=== PATIENT | female | born 1945 | race Caucasian/White ===

== ENCOUNTER → 2019-10-30 11:35 | Outpatient (CLI) | payer MEDICARE, SELFPAY ==
--- NOTE | 2019-10-30 11:37 | DI.US.S_ITS ---
PROCEDURE: US PELVIC COMPLETE INDICATIONS: VAGINAL SPOTTING, CHECK ENDOMETRIAL THICKNESS TECHNIQUE: Real-time scanning was performed of the pelvic organs, with image documentation. Additional endovaginal scanning was necessary due to incomplete visualization of the adnexal and endometrial structures by transabdominal scanning. COMPARISON: [facility], US, US PELVIC COMPLETE, 09/06/2017, 12:55. FINDINGS: Transabdominal scanning: Limited scanning through the kidneys shows no hydronephrosis. No pathologic free abdominal or pelvic fluid. Endovaginal scanning: Uterus: Uterus is normal in size at 6.4 x 2.9 x 4.8 cm. The endometrium measures 4.0 mm in combined thickness. Ill-defined 0.8 x 0.7 cm mildly echogenic focus is seen adjacent to the superior aspect of the endometrial complex. Ovaries: Not identified. No adnexal masses. IMPRESSION: 1. Normal endometrial thickness measuring 4.0 mm and there is an ill defined region of increased echogenicity adjacent to the superior aspect of the endometrial complex. Findings are nonspecific and followup ultrasound in 3 months is recommended to assess for interval changes. Dictated by: Saeed ROJAS Interpreted: Mehul Angel MD on 10/30/2019 at 14:02 Approved by: Mehul Angel M.D. on 10/30/2019 at 16:21
== END ==
PROVIDERS: PCP Nurse Practitioner; Referring Provider Obstetrics & Gynecology; Visit Provider Obstetrics & Gynecology
DX: N95.0 Postmenopausal bleeding (principal)
CPT/HCPCS: 76830; 76856

== ENCOUNTER → 2020-01-20 13:52 | Outpatient (CLI) | payer MEDICARE, SELFPAY ==
[2020-01-21 20:02] LABS: COVID19 Sendout Not Detected (Not Detect)
== END ==
PROVIDERS: PCP Nurse Practitioner; Visit Provider Physician Assistant
DX: Z11.59 Encounter for screening for other viral diseases (principal)
CPT/HCPCS: 87635

== ENCOUNTER 2020-01-23 06:17 | Day surgery (SDC) | payer MEDICARE, SELFPAY ==
[2020-01-17 13:47] VITALS: BMI 28.7
[2020-01-23] VITALS (12 sets, daily range): BP systolic 110–149; BP diastolic 55–84; PULSE 67–76; RESP 12–24; TEMP 36.4–37.3; O2SAT 92–98; BMI 28.6
--- NOTE | 2020-01-23 | PATH_ITS ---
[facility] Accession Number: [id number] . 01 Material submitted: . uterus - UTERUS, BILATERAL FALLOPIAN TUBES AND OVARIES . 01 Clinical history: . *OPB* . 02 Diagnosis: Uterus, Bilateral Fallopian Tubes and Ovaries (Hysterectomy and Bilateral Salpingo-oophorectomy, Weight 52 grams): Cervix with no significant histomorphologic abnormality. Endocervix with Nabothian gland cysts and no significant histomorphologic abnormality. Endometrium with cystic atrophy; negative for glandular hyperplasia, cytologic atypia or malignancy. Myometrium with involvement by adenomyosis. Uterine serosa with no significant histomorphologic abnormality. Ovaries with benign cortical cysts and benign serous cysts (up to 3 mm in greatest dimension). Fallopian tubes x2; negative for atypia or malignancy. [facility] 01/27/2020 1738 Local . 02 Electronically signed: . Laurie Maher MD, Pathologist NPI- [id number] . 01 Gross description: . Received in formalin, labeled with the patient's name, MRN and uterus, bilateral fallopian tubes and ovaries, is a hysterectomy specimen (52 grams, 6.7 cm from cervical os to fundus, 4.5 cm laterally, and 2.7 cm from anterior to posterior) and attached bilateral salpingo-oophorectomy (left fallopian tube 6.0 cm in length by 0.4 cm in diameter, left ovary 1 gram, 2.0 x 1.0 x 0.5 cm, right fallopian tube 6.0 cm in length by 0.3 cm in diameter, right ovary 1 gram, 1.6 x 0.8 x 0.6 cm). The cervix is 3.0 cm in diameter with a 1.0 cm slit-like cervical os. Attached to the posterior aspect of the cervix is a 3.0 x 2.8 cm white-byrne portion of vaginal mucosa. The serosal surface of the uterus is pink-byrne and smooth. The uterus is opened to reveal a 2.1 x 0.7 cm endocervical canal and a 3.0 x 2.2 cm endometrial cavity. The endometrial thickness measures 0.3 cm and the myometrial thickness measures 1.2 cm. No discrete lesions are identified. The external surfaces of the fallopian tubes are purple-pink and smooth. The fallopian tubes are serially sectioned to reveal a byrne-pink cut surface with stellate lumina. The external surfaces of the ovaries are byrne-white and smooth. The ovaries are bisected to reveal a byrne-pink smooth cut surface. Clinical Trial Specialist sections are submitted as follows: . A1: 6 o'clock cervix. A2: 12 o'clock cervix. A3: full-thickness posterior uterine wall. A4: full-thickness anterior uterine wall. A5: full-thickness section of left ovary. A6: veterans employment representative sections of left fallopian tube and entire trisected fimbriated end. A7: entire bisected right ovary. A8: veterans employment representative sections of right fallopian tube and entire trisected fimbriated end. (SD/[id number]) /MRV 01/24/2020 1055 Local . 02 Pathologist provided ICD-10: N81.10, N81.6 . 02 CPT . 376888 Performed at: 01 [facility] [address] [place] [address] [id number] MD Contreras Li MD Phone: [phone] Performed at: 02 [facility] [address] [place] [address] [id number] MD Leigh Ann Almodovar MD Phone: [phone]
[2020-01-23] MEDS: LACTATED RINGERS 1,000 ML 100 ML IV ×3 (07:25→21:23)
--- NOTE | 2020-01-23 07:34 | PM.PREOP ---
Pre-operative Note COVID-19 COVID-19 status: Negative Result date/Date tested (Pos, Neg/Pending): 01/20/20 Interval Note History & Physical reviewed/Exam performed by Physician: Yes Changes to H&P: No H&P completed within 30 days and has changed as indicated here:: 01/15/20
[2020-01-23] MEDS: APREPITANT 40 MG CAPSULE PO (07:45)
[2020-01-23] MEDS: CEFAZOLIN 2 GM/100 ML FROZ.PIGGY IV (07:50)
[2020-01-23] MEDS: BUPIVACAINE 0.25% W/ EPI 30 ML VIAL INJ (08:40)
--- NOTE | 2020-01-23 08:42 | SUR.OPER ---
Lithotomy on padded OR bed. [place] Pad Positioner under torso. Head on pillow, arms padded and tucked at sides. Legs secured in padded yellow fins stirrups.
--- NOTE | 2020-01-23 10:11 | P.OP_ITS ---
Operative Date/Time/Diagnoses Date of procedure: 01/23/20 Time of procedure: 10:12 Pre-op diagnosis: uterine prolapse, cystocele, rectocele Post-op diagnosis: same Procedure & Clinicians Procedure: Procedures Operation Date: 01/23/20 07:45 Actual Procedures Side Surgeon p Laparoscopic Assisted Vag Hysterectomy w/ bilateral salpingo-oophorectomy, Anne White MD s Perineorraphy Anne White MD Indications: Uterine prolapse cystocele rectocele very short posterior vagina Surgeon: Anne White [employer] Financial [employer] Agent: Hui Cote Anesthesia Type: General and Local (incisions, cervix) Operative Notes Findings: 5 week size uterus, prolapsed Attenuated tubes and ovaries Nl liver and gallbladder Nl appendix Shortened vagina posteriorly Closure Type: primary Specimen(s): left tube & ovary, right tube & ovary and uterus Applied: catheter (To continuous drainage) Estimated blood loss (mL): 100 Blood products transfused: none Procedure in detail: The patient was taken to the operating room where she was placed in the dorsal supine position. After adequate general endotracheal anesthesia was achieved, she was placed in the dorsal lithotomy position, and prepped and draped in the usual sterile fashion. A bivalve speculum was placed into the vagina, and a single-tooth tenaculum was placed on the anterior lip of the cervix. The cervical os was sequentially dilated until the ZUMI uterine manipulator could pass easily into the endometrial cavity. The single-tooth tenaculum was removed from the anterior lip of the cervix, and the bivalve speculum was removed from the vagina. Attention was then turned to the abdomen where 6 mL of half percent Marcaine with epinephrine were injected in the umbilical fold. A 5 mm incision was made. The Verees needle was placed into the peritoneal cavity, and its placement confirmed by aspiration and drop test. The opening pressure was high. Several attempts were made with the Verees. The Verees needle was removed. The peritoneum was entered using the Visavue long 5mm trochar. Initial inspection of the pelvis revealed the findings noted above. 2 other incisions were made midway between the pubic symphysis and umbilicus 4 cm lateral to the midline. These were 5 mm incisions. Two 5 mm trochars were placed under direct visualization. The right tube and ovary were grasped with an atraumatic grasper. The tube and ovary was found to be attenuated. The infundibulopelvic ligament on the right side was cauterized and cut with plasma kinetic with care to avoid the ureter. The round ligament and broad ligament were cauterized and cut. This was continued to the level of the uterine arteries. This was repeated on the patient's left side. The instruments were removed from the abdomen. Attention was then turned to the vagina where the ZUMI uterine manipulator was removed from the uterus. The cervix was grasped with a 4 tooth tenaculum. 10 mL of quarter percent Marcaine with epinephrine were injected circumferentially around the cervix. The cervix was circumscribed. The bladder and rectum were dissected off the lower uterine segment and cervix with an open moistened Ray-Alis. The peritoneum was entered sharply with the Metzenbaum scissors anteriorly and a [place] placed. The peritoneum was entered posteriorly with the Metzenbaum scissors and the long weighted speculum was placed into the posterior cul-de-sac. The uterosacral cardinal ligament complexes were clamped, transected, and suture ligated with 0 Vicryl. These were attached to hemostat. The uterine arteries were clamped, transected, and suture ligated with 0 Vicryl. The uterus was handed off for specimen with the tubes and ovaries. The peritoneum was closed with a pursestring suture with 2-0 Vicryl. The vaginal cuff was closed with 0 Vicryl with a series of simple interrupted sutures. The tagged sutures were cut. At this point the vagina was inspected. There was only approximately 3 cm of space posteriorly on the mucosa. The cystocele was minimal. The decision was made to proceed with a perineorrhaphy. Allis clamps were placed at the mucocutaneous junction at the introitus. 6 mL of half percent Marcaine with epinephrine were injected. An incision was made with a #10 blade between the 2 Allis clamps, and a triangular piece of skin and underlying subcutaneous tissue was removed. On the perineum 0 Vicryl was used to reapproximate the levator muscle. The vaginal mucosa was closed with 2 0 Vicryl with running suture. The subcutaneous layer was closed with 2-0 Vicryl. The skin was closed with 3-0 chromic in a subcuticular fashion. Hemostasis was achieved. A Betadine moistened vaginal pack was placed into the vagina. A rectal exam was done and there were no sutures palpable in the rectum. Gloves were changed and attention was then turned to the abdomen. The peritoneal cavity was reinsufflated with 3 L of CO2. All of the pedicles were examined and were found to be hemostatic. A small amount of serosanguineous fluid was in the cul-de-sac and this was suctioned. The instruments were removed from the peritoneal cavity. The CO2 was allowed to escape. The trocars were removed. The incisions were closed with 4 0 Biosyn in a subcuticular fashion. Steri-Strips, 2 x 2, and op site were placed. The urine was clear and approximately 300 cc. Sponge, lap, and instrument counts were correct x-2. The patient tolerated the procedure well, was taken to PACU in stable condition. Complications: none Post-operative Condition: stable Disposition: PACU Plan for aftercare: To Acute Care after Recovery
[2020-01-23] MEDS: KETOROLAC 30 MG/ML VIAL 15 MG IV ×2 (12:27→17:45)
--- NOTE | 2020-01-23 14:08 | PC.NURSE ---
Addendum entered by Loreta Catalan R.N. 01/23/20 14:12: @1300 pt c/o redness/irritation to right eye; no foreign body detected in eye; warm wash cloth compress provided Original Note: @1100 pt transferred to floor from PACU; SCDs active; IV fluids infusing; pt denies pain, although reports pressure to pelvic area; skin assessment notes vaginal packing intact; pad dry and in place; IS instruction with 1500 output; Raymundo draining to gravity, clear yellow. Night nurse to d/c at 0600 on 01/23, written in comment; patient instructed regarding fall risk and call light
[2020-01-23] MEDS: KETOROLAC 0.5% OPHTH DROPS 5 ML 1 DROPS EYE-RIGHT (20:10)
[2020-01-23] MEDS: ERYTHROMYCIN OPHTH 1 GM OINT 1 APPLIC EYE-RIGHT (20:11)
[2020-01-24] MEDS: KETOROLAC 30 MG/ML VIAL 15 MG IV ×2 (00:05→05:57)
[2020-01-24 00:25] VITALS: BP 117/50; PULSE 62; RESP 16; TEMP 36.7; O2SAT 94
--- NOTE | 2020-01-24 02:24 | PC.NURSE ---
Addendum entered by Bernie Albarado R.N. 01/24/20 06:13: Did request SCD's be removed this morning; reminded to ankle wave. Addendum entered by Bernie Albarado R.N. 01/24/20 06:10: Catheter removed at 0600; tolerated well. Instructed in sx/prevention of UTI. Peripad with small amount drainage; changed. Denies pain. Is having some difficulty clearing phlegm from throat; given crackers and coffee without success so now provided with hard candy. Original Note: Patient seen and assessed at 0005. Is alert and oriented. Breath sounds CTA with RA sat of 94%. HRR. Denies nausea. BT present and is passing some flatus. Indwelling catheter is patent; urine is clear, light yellow. Peripad without drainage. Is able to move self in bed. Gait not assessed at this time. Wearing bilateral calf SCD's. States vaginal/low abdominal pain is 2-3/10 and was medicated with scheduled Toradol. Fall risk score is low.
[2020-01-24 04:25] VITALS: BP 120/55; PULSE 67; RESP 18; TEMP 36.9; O2SAT 95
[2020-01-24 05:42] LABS: Add Manual Diff / Slide Review NO; Basophils Absolute Auto 0 /uL (0-100); Basophils Percent Auto 0.2 % (0-2); Eosinophils Absolute Auto 0 /uL (0-450); Hematocrit 31.3 % (36-46); Hemoglobin 10.8 g/dL (12.0-16.0); Lymphocytes Absolute Auto 1100 /uL (1100-4500); Lymphocytes Percent Auto 10.5 % (25-40); Mean Corpuscular HGB Conc 34.4 % (30-36); Mean Corpuscular Hemoglobin 31.4 PG (26-34); Mean Corpuscular Volume 91.3 fL (80-100); Monocytes Absolute Auto 1300 /uL (0-900); Monocytes Percent Auto 12.9 % (3-14); Neutrophils Absolute Auto 7900 /uL (1500-7000); Neutrophils Percent Auto 76.4 % (50-75); Platelet Count 184 X10^3/uL (150-400); Red Blood Cell Count 3.42 X10^6/uL (4.0-5.2); Red Cell Distribution Width 14.5 % (11.6-14.8); White Blood Cell Count 10.3 X10^3/uL (4.5-11.0)
[2020-01-24 07:07] VITALS: BP 134/62; PULSE 74; RESP 16; TEMP 36.4; O2SAT 98
[2020-01-24] MEDS: lisinopriL 20 MG TABLET PO (09:51)
[2020-01-24] MEDS: hydroCHLOROthiazide 12.5 MG CAPSULE PO (09:51)
[2020-01-24] MEDS: METOPROLOL ER 50 MG TABLET 100 MG PO (09:52)
--- NOTE | 2020-01-24 10:39 | PC.NURSE ---
Addendum entered by Loreta Catalan R.N. 01/24/20 10:39: @1015 Pt Voided 300 to hat; Post-void residual 37 mL Pt using IS with 1500 output X5 breaths Q 1hr; ls clear; mild pain; declines pain medication Original Note: @ 1015 pt voi
[2020-01-24 11:06] VITALS: BP 138/63; PULSE 58; RESP 16; TEMP 35.9; O2SAT 95
[2020-01-24 13:43] VITALS: BP 130/63; PULSE 58
--- NOTE | 2020-01-24 15:48 | CM.DANOTE ---
Discharge Planning/Care Management DCP: assessment: case received, EMR reviewed. Discussed in Team Rounds. Pt is a 74 year old female who admitted yesterday for a planned gynecological surgery. Surgeon: Dr. White. Payer: Medicare and [facility]. Dr. White was here this afternoon and ok'd pt for d/c to home setting. A check in now shows that pt has already left for home. No d/c concerns were noted by the care team members. Advanced directive, confirm from FAMILY Start: 01/23/20 11:09 Freq: Q24H Status: Discharge Protocol: Document 01/23/20 11:09 JDG (Rec: 01/23/20 11:10 JDG [id number]) Advance Directive, confirm on record Time 11:10 Person contacted Patient Copy received No Copy received No Document 01/24/20 13:41 JDG (Rec: 01/24/20 13:41 JDG [id number]) Advance Directive, confirm on record Time 11:10 Person contacted Patient Copy received No Time 12:00 Person contacted patient Copy received No Advanced directive available on record No CM Discharge Assessment Start: 01/24/20 15:47 Freq: Status: Active Protocol: Document 01/24/20 15:47 ITV (Rec: 01/24/20 15:48 ITV [id number]) Discharge Planning Assessment Advance Directives? Yes Advance Directives on File No History Provided By Medical Record Prior Living Arrangements House Household Members none Independent with ADL's Yes Review Status In Process Pre-Anesthesia Assessment Start: 01/17/20 13:47 Freq: Status: Complete Protocol: Document 01/17/20 13:47 CAB (Rec: 01/17/20 13:57 CAB [id number]) Pre-Anesthesia Assessment Patient Information Reviewed Via Chart Review Comment COVID screen @ 01/20/20 Primary Care Provider Vicenta Dickson Seen Specialist in Last 12 Months Yes Specialist Seen Radio Sales Account Executive Primary Language Amharic Height 167.64 cm Weight 80.739 kg Body Mass Index (BMI) 28.7 Barriers to Learning None Anesthesia Review Requested No Speech Professor No Smoking Status Former smoker Patient is completely paralyzed or No completely immobile Currently Taking a Beta Batool Yes: Metoprolol Anti-Coagulant Therapy No Genitourinary Symptoms Non-Menses Vaginal Bleeding Urinary Catheter Present No Hx Urinary Self Catheterization No Diabetes No Patient No Lactating No Have you had any close contact with Unknown someone diagnosed with COVID-19? Marital Status Unknown Patient Discharge Plan Description Return Home
--- NOTE | 2020-01-25 14:30 | P.DS_ITS ---
History of Present Illness History of Present Illness Date Patient Seen: 01/24/20 Time Patient Seen: 14:15 Chief complaint: *OPB* Narrative: Patient is a 74 year old 3 para 3 postop day # 1 status post laparoscopic-assisted vaginal hysterectomy/bilateral salpingo- oophorectomy/perineorrhaphy Discharge Providers Provider Discharge Date: 01/24/20 Primary care physician: ALAN Mcmanus Discharge provider: Anne White MD Summary Hospital Course Discharge Diagnosis: Status post laparoscopic-assisted vaginal hysterectomy with bilateral salpingo-oophorectomy and perineorrhaphy Hospital Course: Patient was admitted on January 23, 2020 for scheduled lap assisted vaginal hysterectomy/bilateral salpingo-oophorectomy/perineorrhaphy. She underwent these procedures without complication. Her catheter was removed on postop day # 1 as well as her vaginal packing. She was able to void without the catheter with minimal postvoid residual volume. She tolerated a diet, ambulated without assistance, and pain was managed with oral medications. She is discharged home on postop day # 1 Status at Discharge Cognitive/behavioral status at discharge: oriented Functional status at discharge: independent ambulation Overall status at discharge: patient is progressing back to baseline Time Spent with Patient Time spent: Less than 30 minutes Exam Vital Signs (past 8 hours): Oxygen Delivery Method Room Air Oxygen Flow Rate 0 Narrative Exam Narrative: Generally: Patient is sitting up in bed, no acute distress Lungs: Clear to auscultation bilaterally Cardiovascular: Regular rate and rhythm Abdomen: Soft and flat. Good bowel sounds. Incisions: Clean dry and intact with op sites Extremities: Negative Homans, no edema Objective Labs Result Diagrams: 01/24/20 05:28 Discharge Assessment & Plan Assessment and Plan Assessment: Postop day # 1 status post LAVH/BSO/perineorrhaphy doing very well Plan of Treatment: Discharge to home Follow-up in 2 weeks by [employer] for postop visit Alternate Tylenol and ibuprofen every 3 hours for pain management Stool softener Patient to call with fever, chills, redness or drainage around the incisions, or bleeding vaginally more than spotting to light. Discharge Plan Discharge Plan Patient Disposition: Home Discharge comment: Call with fever, chills, redness or drainage around incisions or bleeding vaginally more than spotty to light Hold aspirin for 1 week Ibuprofen 600mg every 6 hours, Tylenol 650mg every 6 hours Discharge Med Rec/Prescriptions Prescriptions: Continued lisinopril 20 mg tablet 20 mg PO DAILY RF: 0 metoprolol succinate 100 mg tablet extended release 24 hr 100 mg PO DAILY RF: 0 hydrochlorothiazide 12.5 mg capsule 12.5 mg PO DAILY RF: 0 Discontinued aspirin [Adult Aspirin Regimen] 81 mg tablet,delayed release (DR/EC) 81 mg PO DAILY RF: 0 Follow up/Referrals: Vicenta Dickson ARNP [Primary Care Provider] - Anne White MD [Physician] - 2 Weeks (MondayFeb 09 at 4:30pm with Dr White) Discharge Orders: Discharge (Order); Ordered 01/24/20 Ordered By: Anne White Provider Discharge Instructions Diet: Regular Activity: No heavy lifting Walking only Nothing in vagina Skin/Wound/Dressing Care Report to your healthcare provider any signs of infection, such as:: chills, fever, increased pain, unusual drainage and unusual redness Dressing: Remove outer plastic dressings and guaze after first shower Visit Report/Discharge Packet Instructions: DI for Laparoscopy, How to Prevent Falls, DI for Postoperative Pain, DI for Vaginal Hysterectomy Stand Alone Forms: Surgery Discharge Discharge Data Primary Care Provider: Vicenta Dickson Attending Provider: Anne White Discharges patient from system. Discharge Date/Time: 01/24/20 14:50 Quality VTE Deep Vein Thrombosis/Pulmonary Embolism Present on Admission: No
== END 2020-01-24 14:50 | disposition home or self-care (01) ==
LOC: OR 06:19 → AC 06:19
PROVIDERS: PCP Nurse Practitioner; Referring Provider Nurse Practitioner; Visit Provider Obstetrics & Gynecology
PROC: 0UT9FZZ Resection of Uterus, Via Natural or Artificial Opening With Percutaneous Endoscopic Assistance (ICD-10-PCS; CPT 58552; principal; 2020-01-23 07:45)
PROC: (CPT 58552; 2020-01-23 07:45)
DX: N81.3 Complete uterovaginal prolapse (principal); N81.6 Rectocele; I10 Essential (primary) hypertension
CPT/HCPCS: 58552; 57250; 36415; 85025; J0690; J1885; J2250; J3010; J8501

== ENCOUNTER → 2020-04-22 15:16 | Outpatient (CLI) | payer MEDICARE, SELFPAY ==
[2020-01-23 06:59] VITALS: BMI 28.6
== END ==
PROVIDERS: PCP Nurse Practitioner; Visit Provider Obstetrics & Gynecology
DX: R31.9 Hematuria, unspecified (principal)
CPT/HCPCS: 87086